=== PATIENT | male | born 1960 | race Caucasian/White ===

== ENCOUNTER 2018-09-17 12:02 | Emergency (ER) | payer MEDICAID, OTHER ==
[~2018-09-17] VITALS: Ht 175.3 cm; Wt 70.0 kg
[2018-09-17 12:05] VITALS: BP 142/100
== END 2018-09-17 15:07 | disposition home or self-care (01) ==
LOC: ER 12:02
DX: Z00.00 Encounter for general adult medical examination without abnormal findings (principal); F31.9 Bipolar disorder, unspecified; Z59.0 Homelessness
CPT/HCPCS: 99283